=== PATIENT | male | born 1955 | race Caucasian/White ===

== ENCOUNTER 2019-08-27 09:30 | Outpatient (CLI) | payer BC ==
--- NOTE | 2019-08-27 10:59 | MRI ---
MRI Cervical Spine WO Con History: Shoulder pain with numbness Comparison: None. Findings: Cerebral tonsils terminate at the level of the foramen magnum. There is right maxillary muc osal sinus thickening. No marrow infiltrative process. Mild straightening of the cervical spine a be positional. Paraspinal musculature is normal. No cervical adenopathy. Levels are as follows: C2/C3: Mild uncinate process hypertrophy. No neural foraminal or spinal canal narrowing. C3/C4: Mild disc desiccation and uncinate process hypertrophy. No neural foraminal or spinal canal na rrowing. C4/C5: Mild uncinate process hypertrophy, greatest on the left creating moderate left neural foramina l narrowing. No significant spinal canal narrowing. C5/C6: Small circumferential disc osteophyte complex, greatest in the left lateral recess and subfora chase zone. There is superimposed upon uncinate process hypertrophy. Moderate to severe left and mild right neural foraminal narrowing. There is effacement of ventral CSF space with the spinal canal measuring approximately 7 mm. C6/C7: Moderate degenerative disc space height loss. Circumferential disc osteophyte complex. Moderat e left and mild right uncinate process hypertrophy. Mild effacement of ventral CSF space and the spinal canal measuring approximately 8 mm. Moderate to severe left and mild right neural foraminal na rrowing. C7/T1: Normal disc. No neural foraminal or spinal canal narrowing. Impression: Multilevel spondylosis as described.
--- NOTE | 2019-08-27 11:01 | MRI ---
EXAM: MRI Lumbar Spine WO Con PROVIDED CLINICAL HISTORY: Lumbar stenosis with neurogenic claudication COMPARISON: None FINDINGS: 5 lumbar vertebral bodies are assumed. There is trace anterolisthesis of L4 on L5. Lumbar alignment a ppears otherwise normal. Vertebral body heights appear preserved. The visualized extraspinal soft tissues appear unremarkable. The conus medullaris is normal in signal and terminates at an appropriat e level. At L1-2, there is no significant central canal or foraminal narrowing apparent. Mild bilateral facet arthritis. At L2-3, there is no significant central canal or foraminal narrowing apparent. Broad-based disc bulg e and mild bilateral facet arthritis are noted. At L3-4, there is a broad-based disc bulge and bilateral facet arthritis with a superimposed central disc herniation. There is severe central canal stenosis. There is no significant foraminal narrowing apparent. At L4-5, there is a broad-based disc bulge and bilateral facet arthritis. No significant central kelly l or foraminal narrowing apparent. At L5-S1, there is a broad-based disc bulge and bilateral facet arthritis. There is no significant ce ntral canal stenosis apparent. There is moderate left foraminal narrowing. IMPRESSION: Lumbar degenerative change as described.
== END 2019-08-27 09:31 | disposition home or self-care (01) ==
LOC: TBSIIMAG 09:30
PROVIDERS: ATTEND Neurological Surgery
DX: M47.26 Other spondylosis with radiculopathy, lumbar region (principal); M48.062 Spinal stenosis, lumbar region with neurogenic claudication; M47.12 Other spondylosis with myelopathy, cervical region; M47.22 Other spondylosis with radiculopathy, cervical region
CPT/HCPCS: 72141; 72148

== ENCOUNTER 2019-09-01 13:17 | Outpatient (CLI) | payer BC ==
--- NOTE | 2019-09-01 13:52 | RAD ---
LUMBAR SPINE FOUR VIEWS: HISTORY: Neurogenic claudication. Lumbar stenosis. FINDINGS: AP weight-bearing view demonstrates five lumbar type vertebrae with leftward curvature of the lumbar spine which may be positional. Lateral neutral weight-bearing view, lateral flexion weight-bearing view and lateral extension weight -bearing view does not demonstrate any significant spondylolisthesis. No abnormal motion upon flexion or extension. Mild loss of disc space height at L4-L5. Mild to moderate loss of disc space he ight at L5-S1. IMPRESSION: No significant spondylolisthesis. No abnormal motion upon flexion or extension. Transcribed Date/Time: 09/01/2019 2:32 PM
== END 2019-09-01 13:18 | disposition home or self-care (01) ==
LOC: BICRAD 13:17
PROVIDERS: ATTEND Neurological Surgery
DX: M48.062 Spinal stenosis, lumbar region with neurogenic claudication (principal); M54.16 Radiculopathy, lumbar region
CPT/HCPCS: 72110

== ENCOUNTER 2019-09-24 08:39 | Outpatient (CLI) | payer BC ==
[2019-09-24 16:43] LABS: Mean Corpuscular HGB CONC 32.6 g/dL (32.0-36.0); Mean Corpuscular Volume 82.7 fL (78.0-98.0); Mean Platelet Volume 7.7 fL (7.4-10.4); Platelet Count 167 thou/uL (130-400); RBC Distribution Width 14.2 % (11.5-14.5); Red Blood Cell (RBC) Count 4.81 mill/uL (4.70-6.10); White Blood Cell (WBC) Count 4.6 thou/uL (4.8-10.8)
[2019-09-24 16:56] LABS: INR-International Normal Ratio 1.1; Prothrombin Time 13.9 SEC (12.0-14.7)
[2019-09-24 16:57] LABS: PTT 27.7 SEC (22.9-36.1)
--- NOTE | 2019-09-28 21:05 | EKG ---
Test Reason : Blood Pressure : / mmHG Vent. Rate : 057 BPM Atrial Rate : 057 BPM P-R Int : 176 ms QRS Dur : 094 ms QT Int : 420 ms P-R-T Axes : 030 -09 002 degrees QTc Int : 408 ms Sinus bradycardia Inferior infarct , age undetermined Abnormal ECG No previous ECGs available Confirmed by Michael VARGAS ([id number]) on 09/28/2019 9:04:37 PM Referred By: ROMA Confirmed By:Michael VARGAS
== END 2019-09-24 08:40 | disposition home or self-care (01) ==
LOC: LABBT 08:39
PROVIDERS: ATTEND Neurological Surgery
DX: Z01.818 Encounter for other preprocedural examination (principal); M48.062 Spinal stenosis, lumbar region with neurogenic claudication
CPT/HCPCS: 85027; 85610; 85730; 93005; 93010

== ENCOUNTER 2019-09-30 10:29 | Observation (INO) | payer BC ==
[2019-09-24 15:58] VITALS: BMI 37.5
--- NOTE | 2019-09-29 12:07 | HP ---
CHIEF COMPLAINT: Lower back pain. MEDICAL HISTORY: Peripheral arterial disease, coronary artery disease involving creek coronary artery of the creek heart without angina pectoris, hypertension , insulin resistance syndrome, left wrist sprain, arthritis, high cholesterol. SURGICAL HISTORY: Tonsillectomy. HOSPITALIZATION: ASCVD nonoperative, abdominal pain on 08/23/2016, mesenteric ischemia on 08/25/2016. FAMILY HISTORY: Father is , family history is unknown. Mother is , diagnosed with cancer. SOCIAL HISTORY: There are no advanced directives. Currently, lives with his spouse. He is a nonsmoker. ALLERGIES: HE HAS NO KNOWN DRUG ALLERGIES. NEUROLOGY REVIEW OF SYSTEMS: CONSTITUTIONAL: Denies fever or chills. ENT: Denies. CARDIAC: Denies chest pain, shortness of breath, diaphoresis. PULMONARY: Denies shortness of breath, cough, or hemoptysis. GI: Denies abdominal pain, nausea, vomiting, diarrhea, change in stool formation, or inconsistency. : Denies trouble with urination, frequency of urination, or bloody urine. SKIN: Denies rash, oozing, bleeding, or skin masses. MUSCULOSKELETAL: As per the history of present illness. NEUROLOGIC: As per the history of present illness. PSYCHOLOGICAL: As per the history of present illness. HISTORY OF PRESENT ILLNESS: Braeden is a 63-year-old male with back pain, leg pain, radiating to his left side. He has limited in the amount of time he can spend upright. He has lean forward or sit down frequently to alleviate his lower extremity discomfort. If he stands too long, he gets numbness and weakness, and improves with sitting. He has not had any loss of bowel or bladder control. PHYSICAL EXAMINATION: VITAL SIGNS: Weight 245 pounds, height is 67 inches. MUSCULOSKELETAL: There is good strength when he is seated in the iliopsoas. Good strength in the quadriceps, hamstrings, anterior tib, EHL, and gastrocnemius. There is no area of dermatomal sensory loss. The reflexes are brisk, but symmetric. The toes are downgoing. IMAGING FINDINGS: Lumbar spine MRI scan shows various stenosis, especially at L3-4. There was a lateral recess disease at L4-5 and a left-sided narrowing at L5-S1. Flexion-extension x-rays do not show instability. IMPRESSION: Lumbar stenosis with neurogenic claudication with left-sided sciatica. PLAN: Lumbar laminectomy at L3-4, L4-5 and left sided L5-S1. He will need to be off Plavix 1 week before and 2 weeks after surgery. He can remain on a baby aspirin. If a full strength aspirin is necessary, he will have to stay in the hospital after surgery. INFORMED CONSENT: We discussed the indications, risks, benefits, alternatives, and expected results from surgery. The risks discussed include, but were not limited to bleeding, infection, CSF leak, nerve damage, weakness, incontinence, cauda equina injury, paralysis, ventilator dependence, wheelchair dependence, loss of vision, hardware mesh placement, complications of anesthesia, or . Long-term complications discussed included, but were not limited to degenerative or surrounding disk and future surgery. He understands the risks and is willing to proceed. Job ID: [id number] [facility]
[2019-09-30] MEDS ORDERED: Lidocaine 1% PF 5 ML VIAL ONE (10:38)
[2019-09-30] MEDS ORDERED: PROPOFOL 200 MG/20 ML VIAL ONE (10:38)
[2019-09-30] MEDS ORDERED: EPHEDRINE 25 MG/5 ML SYRINGE ONE (10:38)
[2019-09-30] MEDS ORDERED: Glycopyrrolate 0.2 MG/ML 5 ML SYRINGE ONE (10:38)
[2019-09-30] MEDS ORDERED: Rocuronium Bromide 10 MG/ML (10ML VIAL) ONE (10:38)
[2019-09-30] MEDS ORDERED: Thrombin 5000 UNITS/5 ML VIAL ONE (11:43)
[2019-09-30] MEDS ORDERED: Bupivacaine PF 0.5% 30 ML VIAL ONE (11:43)
[2019-09-30] MEDS ORDERED: Fentanyl 100 MCG/2 ML VIAL ONE ×3 (12:27→16:51)
[2019-09-30] MEDS ORDERED: Phenylephrine HCL 10 MG/ML VIAL ONE (12:28)
[2019-09-30] MEDS ORDERED: Lidocaine 2% Jelly 5 ML TUBE ONE (12:28)
[2019-09-30] MEDS ORDERED: diphenhydrAMINE 50 MG/ML VIAL IVP PRN (13:13)
[2019-09-30] MEDS ORDERED: HYDROcodone/Acetaminophen 10/325 mg Tablet PO PRN ×2 (13:13)
[2019-09-30] MEDS ORDERED: tiZANidine HCl 4 MG TAB PO PRN (13:13)
[2019-09-30] MEDS ORDERED: diphenhydrAMINE 25 MG CAP PO PRN (13:13)
[2019-09-30] MEDS ORDERED: traMADol HCl 50 MG TAB PO PRN ×2 (13:13)
[2019-09-30] MEDS ORDERED: Milk Of Magnesia 30 ML UDCUP PO PRN (13:13)
[2019-09-30] MEDS ORDERED: Morphine 4 MG/ML VIAL SLOW IVP PRN (13:13)
[2019-09-30] MEDS ORDERED: Acetaminophen/Codeine 30-300mg Tablet PO PRN ×2 (13:13)
[2019-09-30] MEDS ORDERED: Promethazine HCl 12.5 MG SUPP PR PRN (13:13)
[2019-09-30] MEDS ORDERED: Acetaminophen 325 MG TAB PO PRN (13:13)
[2019-09-30] MEDS ORDERED: Bisacodyl 10 MG SUPP PR PRN (13:13)
[2019-09-30] MEDS ORDERED: Morphine 2 MG/ML SYRINGE SLOW IVP PRN (13:13)
[2019-09-30] MEDS ORDERED: Fleet Enema 133 ML BOT PR PRN (13:13)
[2019-09-30] MEDS ORDERED: Mag-Al 1200 mg/1200 mg/30 ML UDCUP PO PRN (13:13)
[2019-09-30] MEDS ORDERED: Promethazine 25 MG TAB PO PRN (13:13)
[2019-09-30] MEDS ORDERED: Ondansetron PF 4 MG/2 ML Vial IVP PRN (13:13)
[2019-09-30] MEDS ORDERED: Promethazine HCl 25 MG/ML VIAL IM PRN (13:13)
[2019-09-30] MEDS ORDERED: Acetaminophen 650 MG Suppository PR PRN (13:13)
[2019-09-30] MEDS ORDERED: Nitroglycerin 0.4 MG TAB (25 Tab Bottle) SL PRN (13:30)
[2019-09-30] MEDS ORDERED: Promethazine HCl 25 MG/ML VIAL ONE (16:46)
[2019-09-30] MEDS: metFORMIN 500 MG TAB PO SCH (18:32)
[2019-09-30] MEDS: Sodium Chloride 0.9% 1,000 ML IV SCH (18:32)
[2019-09-30] MEDS: Carvedilol 25 MG TAB PO SCH (20:36)
[2019-09-30] MEDS: CEFAZOLIN 2 GM in Premix Bag 1 BAG IVPB SCH (20:37)
--- NOTE | 2019-09-30 23:37 | OP ---
DATE OF PROCEDURE: 09/30/2019 CUTCH CLEANER: Roldan Denton PA-C PREOPERATIVE INDICATION: Treat pain and prevent neurological deterioration. PREOPERATIVE DIAGNOSIS: Lumbar spinal stenosis with severe neurogenic claudication, L3-4, L4-5, and left L5-S1. POSTOPERATIVE DIAGNOSIS: Lumbar spinal stenosis with severe neurogenic claudication, L3-4, L4-5, and left L5-S1. OPERATIVE PROCEDURE: Decompressive laminectomy with medial facetectomy and foraminotomy at L3-L4, L4-L5, and left L5-S1. PREOP MEDICATIONS: Ancef 2 g IV. DRAIN NUMBER: Zero. DRAIN TYPE: None. DESCRIPTION OF PROCEDURE: The patient was brought to the operating room. General endotracheal anesthesia was induced. The patient was carefully positioned on the operating table with the chest and hips supported by gel-filled chest rolls. A lateral fluoro radiograph was used to plan our incision. The lumbar skin was sterilely prepped and draped. We opened our midline incision with a 10 blade knife and we controlled bleeding with bipolar and monopolar cautery. We used monopolar cautery to dissect through subcutaneous tissues to the thoracodorsal fascia. We incised the fascia in the midline and reflected paraspinal muscles off the spinous process and lamina of L3, L4, L5 and the left side of S1. A lateral fluoro radiograph confirmed the levels upon which we were operating. We then used an Adson rongeur to remove the spinous processes of L3 and L4 and the superior portion of L5. We thinned the lamina and then using a Kerrison rongeur, we fashioned a laminectomy from the bottom of the L4 lamina up to the L3 pedicles. We widened our laminectomy defect. We performed a hemilaminectomy at L5-S1 on the left. In order to decompress the lateral recesses, we had to perform medial facetectomies at L3-L4 and L4-5 bilaterally and on the left at L5-S1. We passed a Fernandez ball probe through the lateral recess and out the foramen with the L3, L4, L5, and left S1 nerve roots and where there was entrapment, we performed foraminotomies until the Fernandez ball probe could pass out the foramen with no impingement. We then irrigated with bacitracin irrigation. We waxed the bone edges. We controlled epidural bleeding. We infused local anesthetic in the paraspinal muscles. We irrigated copiously with bacitracin irrigation. We treated the wound with vancomycin powder. We closed in anatomical layers and we applied a sterile dressing. This was a clean case, no contamination. Job ID: [id number]
[2019-10-01 02:34] LABS: Bacteria/HPF None Seen HPF (None Seen); Bilirubin Negative (Negative); Blood, Urine Negative (Negative); Clarity Clear (Clear); Glucose, Urine (Dipstick) Normal (Negative); Leukocyte Negative Leu/uL (Negative); Nitrite Negative (Negative); Protein, Urine (Dipstick) 10 mg/dL (Neg-Trace); RBC/HPF 0-3 HPF (0-3); Sperm/HPF 1+ HPF (None Seen); Squamous Epithelial 0-3 HPF (0-3); Urobilinogen Normal mg/dL (Less than 2); WBC/HPF 0-3 HPF (0-3)
[2019-10-01 02:35] LABS: Urine Culture Reflex No No
[2019-10-01] MEDS: Sodium Chloride 0.9% 1,000 ML IV SCH ×2 (03:41→17:39)
[2019-10-01] MEDS: CEFAZOLIN 2 GM in Premix Bag 1 BAG IVPB SCH (05:48)
[2019-10-01] MEDS ORDERED: Tamsulosin HCl 0.4 MG CAP PO SCH (06:00)
--- NOTE | 2019-10-01 07:02 | PRG ---
DATE OF SERVICE: 10/01/2019 Mr. Bhat is 1 day out from lumbar laminectomy. He had some difficulty initiating his urinary stream yesterday, so a Zamora catheter was placed. He did get out of bed and stand yesterday, but he did not yet walk in the hallways. His maximum temperature overnight was 99.7 degrees Fahrenheit. Blood pressures have been between the 110s and 140s. He has good sensation in neurological function in his lower extremities. Today's plan is to stand and walk. Once he is up walking for significant amount of time, we can remove the Zamora catheter. He will be ready for discharge when he is safe for his activities of daily living including dressing, getting in and out of bed, urinating, and ambulating in the hallways. Job ID: [id number]
[2019-10-01] MEDS ORDERED: Dextrose 5% in Water 1,000 ML IV PRN (07:19)
[2019-10-01] MEDS ORDERED: Dextrose 50% Abboject 50 ML SYRINGE SLOW IVP PRN (07:19)
[2019-10-01] MEDS ORDERED: HumaLOG 300 UNITS/3 ML VIAL SC PRN ×2 (07:19)
[2019-10-01] MEDS ORDERED: Aspirin 81 mg Enteric Coated Tablet PO SCH (09:00)
[2019-10-01] MEDS ORDERED: Isosorbide Mononitrate (ER) 30 MG TAB PO SCH (09:00)
[2019-10-01] MEDS ORDERED: Rosuvastatin 20 MG TAB PO SCH (09:00)
[2019-10-01] MEDS: Carvedilol 25 MG TAB PO SCH (09:14)
[2019-10-01] MEDS: metFORMIN 500 MG TAB PO SCH (09:14)
[2019-10-01 12:03] VITALS: BP 114/56; TEMP 98.9
--- NOTE | 2019-10-01 23:57 | DIS ---
DATE OF ADMISSION: 09/30/2019 DATE OF DISCHARGE: 10/01/2019 REASON FOR HOSPITALIZATION: The patient with severe lumbar spinal stenosis and severe neurogenic claudication, who has failed conservative medical management, who presents for elective surgical decompression and laminectomy on 09/30/[address] Clark. PROCEDURES PERFORMED AND TREATMENTS RENDERED: The patient went for decompressive laminectomy with medial facetectomy and foraminotomy at L3-L4, L4-L5, and left [id number] see full operative report from Dr. Clark from 09/30/2019 for full details. The patient tolerated the procedure well without intraoperative complications. The patient was monitored postoperatively and did not have any postoperative complications. The patient is ambulating to and from the restroom without difficulties. The patient is voiding his bladder and tolerating diet. The patient was recommended safe for discharge by surgery with close followup in the outpatient setting. CONDITION ON DISCHARGE: Stable. SPECIFIC INSTRUCTIONS FOR THE PATIENT/FAMILY: 1. The patient is recommended to follow up with primary care physician in the next 5 to 7 days. 2. The patient is recommended to follow up with surgery in the next 1 to 2 weeks. 3. The patient is recommended to take all medications as directed. 4. The patient is recommended to return to acute care hospital immediately if signs or symptoms return, worsen, or any other new symptoms occur. DISCHARGE MEDICATIONS: 1. Carvedilol 50 mg one tablet p.o. b.i.d. 2. Plavix 75 mg one tablet p.o. daily. 3. Isosorbide mononitrate 120 mg extended release one tablet p.o. daily. 4. Crestor 40 mg one tablet p.o. daily. 5. Metformin 500 mg one tablet p.o. b.i.d. 6. Tizanidine 4 mg p.o. q.6 hours p.r.n. muscle spasms. 7. Aspirin 325 mg one tablet p.o. daily. 8. Acetaminophen/codeine No. 3, one tablet p.o. q.3 hours p.r.n. pain. 9. Nitroglycerin sublingual 0.4 mg sublingual q.5 minutes p.r.n. chest pain. Greater than 36 minutes spent coordinating care and discharge process for this patient. Job ID: [id number]
== END 2019-10-01 17:05 | disposition home or self-care (01) ==
LOC: SDC 10:29 → 2SW 18:03
PROVIDERS: ADMIT Neurological Surgery; ATTEND Neurological Surgery
PROC: 01NB0ZZ Release Lumbar Nerve, Open Approach (ICD-10-PCS; principal; 2019-09-30)
DX: M48.062 Spinal stenosis, lumbar region with neurogenic claudication (principal); M54.42 Lumbago with sciatica, left side; M50.922 Unspecified cervical disc disorder at C5-C6 level; E78.00 Pure hypercholesterolemia, unspecified; I25.10 Atherosclerotic heart disease of native coronary artery without angina pectoris; I10 Essential (primary) hypertension; M19.90 Unspecified osteoarthritis, unspecified site; Z79.02 Long term (current) use of antithrombotics/antiplatelets; Z79.84 Long term (current) use of oral hypoglycemic drugs; Z79.899 Other long term (current) drug therapy
CPT/HCPCS: 36416; 51702; 51798; 76000; 81001; 96361; 96374; 96376; G0378; J0690; J2001; J2370; J2550; J2704; J3010; J3370; J3490; S0020

== ENCOUNTER 2021-11-29 07:33 | Outpatient (CLI) | payer BC, OTHER | END 2021-11-29 07:34 | disposition home or self-care (01) | LOC: BICCT 07:33 | PROVIDERS: ATTEND Urology | DX: R31.0 Gross hematuria (principal); N32.89 Other specified disorders of bladder | CPT/HCPCS: 74178; 82565 ==

== ENCOUNTER 2022-03-11 12:50 | Outpatient (CLI) | payer BC, MEDICARE ==
[2022-03-11 15:07] LABS: PTT 23.8 sec (22.0-33.0); Prothrombin Time 11.1 sec (9.5-12.1)
[2022-03-11 15:10] LABS: Bilirubin Neg (Negative); Blood, Urine 25 (Negative); Clarity Clear (Clear); Glucose, Urine (Dipstick) Normal (Negative); Ketone, Urine Negative (Negative); Leukocyte Negative (Negative); Mean Corpuscular Hemoglobin 26.5 pg (27.0-33.0); Mean Corpuscular Volume 82.6 fl (81.2-95.1); Mean Platelet Volume 9.6 fl (7.4-10.4); Nitrite Negative (Negative); Platelet Count 167 10x3/uL (150-450); Protein, Urine (Dipstick) Negative (Neg-Trace); RBC Distribution Width 14.7 % (11.5-14.5); Red Blood Cell (RBC) Count 5.29 10x6/uL (4.32-5.72); Specific Gravity, Urine 1.025 (1.002-1.036); Urobilinogen Normal mg/dL (Less than 2); White Blood Cell (WBC) Count 4.3 10x3/uL (3.5-10.5)
[2022-03-11 15:13] LABS: Anion Gap 15 mmol/L (10-20); BUN (Urea Nitrogen) 18 mg/dL (8.4-25.7); Calc. Creatinine Clearance 0 mL/min (70-130); Calcium 9.4 mg/dL (7.8-10.44); Carbon Dioxide 23 mmol/L (23-31); Chloride 113 mmol/L (98-107); Estimated GFR 70; Glucose 87 mg/dL (80-115); Sodium 144 mmol/L (136-145)
[2022-03-11 15:45] LABS: Bacteria/HPF Rare-Few HPF (None Seen); Squamous Epithelial 0-3 HPF (0-3); WBC/HPF 0-3 HPF (0-3)
[2022-03-11 15:58] LABS: Potassium 7.1 mmol/L (3.5-5.1)
== END 2022-03-11 12:51 | disposition home or self-care (01) ==
LOC: LABBT 12:50
PROVIDERS: ATTEND Urology
DX: Z01.818 Encounter for other preprocedural examination (principal); N35.912 Unspecified bulbous urethral stricture, male; I25.10 Atherosclerotic heart disease of native coronary artery without angina pectoris; E11.65 Type 2 diabetes mellitus with hyperglycemia; M47.12 Other spondylosis with myelopathy, cervical region; N40.0 Benign prostatic hyperplasia without lower urinary tract symptoms; R30.0 Dysuria; R31.0 Gross hematuria; Z20.822 Contact with and (suspected) exposure to COVID-19
CPT/HCPCS: 80048; 81001; 85027; 85610; 85730; 87086; 87811; 93005; 93010

== ENCOUNTER 2022-03-12 07:55 | Outpatient (CLI) | payer BC, MEDICARE ==
[2022-03-12 08:36] LABS: Anion Gap 13 mmol/L (10-20); BUN (Urea Nitrogen) 18 mg/dL (8.4-25.7); Calc. Creatinine Clearance 0 mL/min (70-130); Calcium 8.7 mg/dL (7.8-10.44); Carbon Dioxide 23 mmol/L (23-31); Chloride 111 mmol/L (98-107); Estimated GFR 76; Glucose 111 mg/dL (80-115); Potassium 5.7 mmol/L (3.5-5.1); Sodium 141 mmol/L (136-145)
== END 2022-03-12 07:56 | disposition home or self-care (01) ==
LOC: LABBT 07:55
PROVIDERS: ATTEND Family Medicine
DX: Z01.812 Encounter for preprocedural laboratory examination (principal)
CPT/HCPCS: 80048

== ENCOUNTER 2022-05-07 08:51 | Outpatient (CLI) | payer BC, MEDICARE ==
[2022-05-07 09:52] LABS: Hemoglobin 13.6 g/dL (13.5-17.5); Mean Corpuscular HGB CONC 32.4 g/dL (32.0-36.0); Mean Corpuscular Hemoglobin 26.7 pg (27.0-33.0); Mean Corpuscular Volume 82.5 fl (81.2-95.1); Mean Platelet Volume 9.1 fl (7.4-10.4); Platelet Count 126 10x3/uL (150-450); RBC Distribution Width 14.3 % (11.5-14.5); Red Blood Cell (RBC) Count 5.09 10x6/uL (4.32-5.72); White Blood Cell (WBC) Count 4.3 10x3/uL (3.5-10.5)
[2022-05-07 09:59] LABS: Anion Gap 13 mmol/L (10-20); BUN (Urea Nitrogen) 13 mg/dL (8.4-25.7); Calc. Creatinine Clearance 0 mL/min (70-130); Calcium 8.9 mg/dL (7.8-10.44); Carbon Dioxide 21 mmol/L (23-31); Chloride 112 mmol/L (98-107); Estimated GFR 75; Glucose 134 mg/dL (80-115); Potassium 5.5 mmol/L (3.5-5.1); Sodium 140 mmol/L (136-145)
[2022-05-07 10:01] LABS: PTT 24.5 sec (22.0-33.0); Prothrombin Time 10.9 sec (9.5-12.1)
[2022-05-07 12:18] LABS: Bilirubin Negative (Negative); Blood, Urine Trace (Negative); Clarity Clear (Clear); Glucose, Urine (Dipstick) Negative (Negative); Ketone, Urine Negative (Negative); Leukocyte Negative (Negative); Nitrite Negative (Negative); Protein, Urine (Dipstick) Trace mg/dL (Neg-Trace); Specific Gravity, Urine 1.025 (1.005-1.030); Urobilinogen 0.2 mg/dL (Less than 2); pH, Urine 5.5 (5.0-9.0)
[2022-05-07 12:36] LABS: Bacteria/HPF None Seen HPF (None Seen); RBC/HPF 0-3 HPF (0-3); Squamous Epithelial 0-3 HPF (0-3); WBC/HPF None Seen HPF (0-3)
== END 2022-05-07 08:52 | disposition home or self-care (01) ==
LOC: LABBT 08:51
PROVIDERS: ATTEND Urology
DX: Z01.818 Encounter for other preprocedural examination (principal); N35.919 Unspecified urethral stricture, male, unspecified site; Z20.822 Contact with and (suspected) exposure to COVID-19
CPT/HCPCS: 80048; 81001; 85027; 85610; 85730; 87086; 87811; 93005; 93010

== ENCOUNTER 2022-05-09 09:27 | Day surgery (SDC) | payer BC, MEDICARE ==
[2022-03-13 09:37] VITALS: BMI 39.1
[2022-05-09] MEDS ORDERED: Triamcinolone Acetonide 40 MG in Sodium Chloride 0.9% 4 ML FS SCH (09:45)
[2022-05-09 10:41] LABS: Anion Gap 14 mmol/L (10-20); BUN (Urea Nitrogen) 15 mg/dL (8.4-25.7); Calc. Creatinine Clearance 104 mL/min (70-130); Carbon Dioxide 20 mmol/L (23-31); Chloride 110 mmol/L (98-107); Estimated GFR 71; Glucose 106 mg/dL (80-115); Potassium 5.3 mmol/L (3.5-5.1); Sodium 139 mmol/L (136-145)
[2022-05-09] MEDS ORDERED: Famotidine/PF 20 mg/2ml Vial ONE (10:56)
[2022-05-09] MEDS ORDERED: SUGAMMADEX SODIUM 200 MG/2 ML VIAL ONE (10:56)
[2022-05-09] MEDS ORDERED: fentaNYL Citrate/PF 100 MCG/2 ML SYRINGE ONE (10:56)
[2022-05-09] MEDS ORDERED: Levofloxacin 500 mg/D5W 100 ml Premix Bag ONE (11:42)
[2022-05-09] MEDS ORDERED: PROPOFOL 200 MG/20 ML VIAL ONE (11:51)
[2022-05-09] MEDS ORDERED: Lidocaine 1% MPF 2 ML VIAL ONE (11:51)
[2022-05-09] MEDS ORDERED: Ondansetron PF 4 MG/2 ML Vial ONE (11:51)
[2022-05-09] MEDS ORDERED: Rocuronium Bromide 10 MG/ML (10ML VIAL) ONE (11:51)
[2022-05-09] MEDS ORDERED: Phenylephrine 10 MG/ML VIAL ONE (11:51)
[2022-05-09] MEDS ORDERED: B & O ONE (11:56)
[2022-05-09] MEDS ORDERED: Triamcinolone 40 MG/ML VIAL ONE (12:08)
== END 2022-05-09 14:41 | disposition home or self-care (01) ==
LOC: SDC 09:27
PROVIDERS: ATTEND Urology
PROC: 0TND8ZZ Release Urethra, Via Natural or Artificial Opening Endoscopic (ICD-10-PCS; principal; 2022-05-09)
DX: N35.912 Unspecified bulbous urethral stricture, male (principal); N40.1 Benign prostatic hyperplasia with lower urinary tract symptoms; N13.8 Other obstructive and reflux uropathy; I10 Essential (primary) hypertension; I73.9 Peripheral vascular disease, unspecified; I25.10 Atherosclerotic heart disease of native coronary artery without angina pectoris; I25.2 Old myocardial infarction; E78.5 Hyperlipidemia, unspecified; Z79.02 Long term (current) use of antithrombotics/antiplatelets; Z79.84 Long term (current) use of oral hypoglycemic drugs; Z79.899 Other long term (current) drug therapy
CPT/HCPCS: 80048; J1956; J2370; J2405; J2704; J3301; S0028

== ENCOUNTER 2023-07-23 20:13 | Emergency (ER) | payer BC, MEDICARE ==
[2023-07-23] MEDS ORDERED: Ketorolac Tromethamine 30 MG/ML VIAL ONE (21:15)
[2023-07-23] MEDS ORDERED: Acyclovir 800 mg Tablet PO SCH (21:30)
== END 2023-07-23 22:15 | disposition home or self-care (01) ==
LOC: ERS 20:13
DX: B02.9 Zoster without complications (principal); I10 Essential (primary) hypertension; E11.9 Type 2 diabetes mellitus without complications; E78.5 Hyperlipidemia, unspecified; I25.10 Atherosclerotic heart disease of native coronary artery without angina pectoris; I25.2 Old myocardial infarction; Z79.899 Other long term (current) drug therapy; Z79.84 Long term (current) use of oral hypoglycemic drugs; Z79.82 Long term (current) use of aspirin; Z87.891 Personal history of nicotine dependence
CPT/HCPCS: 96372; 99282; J1885